=== PATIENT | male | born 1970 ===

== ENCOUNTER 2021-01-01 14:10 | Emergency (ER) | payer MEDICAID, OTHER ==
[~2021-01-01] VITALS: Ht 177.8 cm; Wt 90.7 kg
[2021-01-01] MEDS ORDERED: PENI500T2 PO (14:42)
[2021-01-01 14:52] VITALS: BP 134/83
== END 2021-01-01 14:54 | disposition home or self-care (01) ==
LOC: ER 14:11
DX: L03.211 Cellulitis of face (principal); R00.2 Palpitations; Z79.2 Long term (current) use of antibiotics
CPT/HCPCS: 99283